=== PATIENT | male | born 1960 | race Caucasian/White ===

== ENCOUNTER 2016-12-21 09:05 | Day surgery (SDC) | payer BC ==
[~2016-12-21] VITALS: Ht 190.5 cm; Wt 78.4 kg
[2016-12-21] VITALS (10 sets, daily range): BP systolic 105–139; BP diastolic 62–82; PULSE 58–81; TEMP 98.1–98.9
[2016-12-21] MEDS ORDERED: NORCO 325 MG-51 TAB PO (12:53)
[2016-12-21] MEDS ORDERED: ZOFRAN ODT4 MG PO (12:53)
[2016-12-21] MEDS ORDERED: MOTRIN 600600 MG/TAB PO (12:53)
[2016-12-21] MEDS ORDERED: COLACE 100100 MG/CAP PO (12:54)
== END 2016-12-21 17:03 | disposition home or self-care (01) ==
LOC: SDCO 09:05
DX: K40.90 Unilateral inguinal hernia, without obstruction or gangrene, not specified as recurrent (principal); R55 Syncope and collapse; I97.89 Other postprocedural complications and disorders of the circulatory system, not elsewhere classified; F17.210 Nicotine dependence, cigarettes, uncomplicated
CPT/HCPCS: A4315; C1781; J0360; J0690; J1885; J1940; J2405; J2704; J3010; J7120